=== PATIENT | male | born 1950 | race Caucasian/White ===

== ENCOUNTER → 2017-03-31 | Outpatient (CLI) | payer BC | LOC: BMCIMAGING 16:11 | PROVIDERS: ATTEND Family Medicine | DX: M25.521 Pain in right elbow (principal); M79.89 Other specified soft tissue disorders ==

== ENCOUNTER 2017-12-11 09:28 | Emergency (ER) | payer BC ==
[2017-12-11 09:33] VITALS: BP 152/97; PULSE 58; RESP 20; TEMP 98.2; O2SAT 99
--- NOTE | 2017-12-11 09:39 | EDPHY ---
H & P Stated Complaint: left eye flashing starting last night Time Seen by Provider: 12/11/17 09:38 HPI/ROS: CHIEF COMPLAINT: [place] left eye HISTORY OF PRESENT ILLNESS: The patient presents to the ED with a 1 day history of flashers his left eye. Patient denies any history of fall trauma. He denies any visual field cut. He denies any history of high pain. The patient has no prior history of ocular disease. The patient does have a prior history of concussion. The patient does have some degree of lag opthalmos following his concussion. The patient is not anticoagulated. The patient denies any additional acute complaints. REVIEW OF SYSTEMS: A comprehensive 10 point review of systems is otherwise negative aside from elements mentioned in the history of present illness. Source: Patient Exam Limitations: No limitations - Personal History Current Tetanus/Diphtheria Vaccine: Yes Current Tetanus Diphtheria and Acellular Pertussis (TDAP): Yes Tetanus Vaccine Date: 2013 - Medical/Surgical History Hx Asthma: No Hx Chronic Respiratory Disease: No Hx Diabetes: No Hx Cardiac Disease: No Hx Renal Disease: No Hx Cirrhosis: No Hx Alcoholism: No Hx HIV/AIDS: No Hx Splenectomy or Spleen Trauma: No Other PMH: 3 lasik surgeries to left eye, appendectomy, clean angioplasty,HTN, HIGH CHOLESTEROL - Social History Smoking Status: Former smoker - Physical Exam Exam: Visual Acuity: noted from Nurse's notes., no visual field deficits noted on exam Pupils: equal round and reactive to light EOMI Skin: no proptosis, no periorbital erythema or swelling, no vesicles Conjunctivae: not injected, no discharge Anterior chamber: normal, no hyphema or hypopyon Constitutional: Initial Vital Signs Temperature (C) 36.8 C 12/11/17 09:30 Heart Rate 58 L 12/11/17 09:30 Respiratory Rate 20 12/11/17 09:30 Blood Pressure 152/97 H 12/11/17 09:30 O2 Sat (%) 99 12/11/17 09:30 O2 Delivery Mode Room Air Allergies/Adverse Reactions: chloramphenicol Allergy (Verified 12/11/17 09:30) Home Medications: Medication Instructions Recorded Aspirin [Aspirin 81mg (OTC)] 81 mg PO HS 01/06/14 Simvastatin [Zocor] 20 mg PO HS 01/06/14 Lisinopril 10 mg PO HS 06/06/15 Melatonin [Melatonin 3 MG (OTC)] 3 mg PO HS 03/09/15 Medical Decision Making ED Course/Re-evaluation: The patient presents to the ED with a new flashing lights sensation is left eye. He is neurologically intact. He has no clinical evidence of a door ablation. He has no visual field cuts. The patient has no complaints of pain. Examination of the eye demonstrates no obvious deficits. The patient has been instructed that he needs to follow up for a detailed dilated eye examination with our on-call audio visual production specialist Dr. Darrin Reddy on Wednesday. He has been advised to return to the emergency department for any vision loss, severe headache, neurologic symptoms, severe eye pain or other concerns. Departure - Departure Disposition: Home, Routine, Self-Care Clinical Impression: Vision changes Condition: Good Instructions: Visual Floaters (ED), Blurred Vision (ED) Additional Instructions: 1. Please schedule a follow-up appointment on Wednesday with audio visual production specialist you have been referred to for further evaluation of your visual complaints. 2. Return to the ED for severe headache, eye pain, vision loss, numbness or weakness. Referrals: Darrin Reddy MD [Medical Doctor] - As per Instructions
[2017-12-11] MEDS ORDERED: FLUORESCEIN SODIUM 1 MG STRIP OP ONE (09:41)
[2017-12-11] MEDS ORDERED: PROPARACAINE 0.5% 15 ML OPHT DROP ONE (09:41)
== END 2017-12-11 10:09 | disposition home or self-care (01) ==
DX: H53.8 Other visual disturbances (principal); I10 Essential (primary) hypertension; Z79.82 Long term (current) use of aspirin; Z87.891 Personal history of nicotine dependence

== ENCOUNTER 2018-01-10 13:18 | Inpatient (IN) | payer BC, OTHER ==
--- NOTE | 2018-01-10 14:06 | EDPHY ---
H & P Stated Complaint: sent from MRI-hematoma in brain Time Seen by Provider: 01/10/18 13:27 HPI/ROS: CHIEF COMPLAINT: Subdural hematoma, neuro symptoms HISTORY OF PRESENT ILLNESS: The patient is a 67 y/o left hand dominant male with a history of hypertension arriving from the imaging department with a subacute left-sided subdural hematoma seen on brain MRI today. He says, "in September on the I had a fall I went head first down some stairs on a ship" while headed to [facility].At that time he was diagnosed with a concussion. In November he had an episode of numbness extending from "the top of my gluteus muscle up to my right scapula" that felt "like I'd had a shot of novocaine." This resolved and then recurred a few days later, again with spontaneous resolution. He later noticed intermittent numbness in the thumb, index, and middle finger of his right hand. Occasionally this can be associated with numbness in his lips on the right side. These symptoms last about 4-5 minutes at a time and he has been unable to identify an obvious provoking factor as they can present at rest, exertion, and in different positions. Last week, he became concerned when it "felt like my tongue wasn't forming the right words." His did not notice any change in his speech and they both deny noticing any facial asymmetry. Since the head injury in September, his daughter noticed he has not been closing his left eye incompletely, particularly while sleeping, and he's had increased watering of this eye. 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 He denies any difficulty walking, headache, or extremity weakness. He saw his PCP today for these symptoms and was referred for MRI, Subdural hematoma seen on MRI, prompting to the ED for neurosurgical evaluation. He takes a daily aspirin, no other anticoagulants. No history of cardiac or respiratory disease. REVIEW OF SYSTEMS: A 10 point review of systems was performed and is negative with the exception of the elements mentioned in the history of present illness. Past medical history: Hypertension, hypercholesterolemia, acid reflux, BPH, chronic bilateral foot numbness Past surgical history: Appendectomy, GreenLight Laser for prostate, shoulder surgery Family history: Noncontributory Social history: Exercises 5-6 days per week. , at bedside. Former smoker 30 years ago. No alcohol. Author. PCP: Dr. Bailey Prior medical records reviewed including MRI study from today and prior ED note from December 2017. Adult Physical: General Appearance: Alert, no acute distress. BP 146/102 Eyes: Pupils equal and round, no conjunctival injection, no discharge. ENT, Mouth: Mucous membranes are moist, no oropharyngeal erythema or edema. Neck: No lymphadenopathy, supple. Respiratory: Lungs are clear to auscultation; no wheezes, rales, or rhonchi. Cardiovascular: Regular rate and rhythm; no murmur, rub, or gallop. Gastrointestinal: Abdomen is soft and non tender, no masses or organomega. Skin: Warm and dry, no rashes, normal color. Back: Nontender to palpation over the thoracolumbar spine. Extremities: No lower extremity edema, no calf tenderness or swelling. Neurological: Alert and oriented. Moving all four extremities easily and equally. Cranial nerves II through XII are examined and are intact (visual acuity not tested) apart from incomplete closure of left eyelid, loss of forehead muscle tone on left, and flattening of right nasolabial fold. Strength is 4+/5 of right upper extremity and 5/5 with testing of all other major motor groups. Sensation is intact to light touch over all 4 extremities. Deep tendon reflexes are 1+ in the biceps and knees bilaterally. No ankle clonus. Gait normal. [id number] is performed accurately. Psychiatric: Normal affect. - Personal History Current Tetanus/Diphtheria Vaccine: Yes Current Tetanus Diphtheria and Acellular Pertussis (TDAP): Yes Tetanus Vaccine Date: 2013 - Medical/Surgical History Hx Asthma: No Hx Chronic Respiratory Disease: No Hx Diabetes: No Hx Cardiac Disease: Yes Hx Renal Disease: No Hx Cirrhosis: No Hx Alcoholism: No Hx HIV/AIDS: No Hx Splenectomy or Spleen Trauma: No Other PMH: 3 lasik surgeries to left eye, appendectomy, clean angioplasty,HTN, HIGH CHOLESTEROL - Social History Smoking Status: Former smoker Constitutional: Initial Vital Signs Temperature (C) 36.7 C 01/10/18 13:21 Heart Rate 68 01/10/18 13:21 Respiratory Rate 18 01/10/18 13:21 Blood Pressure 146/102 H 01/10/18 13:21 O2 Sat (%) 96 01/10/18 13:21 O2 Delivery Mode Room Air Allergies/Adverse Reactions: chloramphenicol Allergy (Verified 01/10/18 14:46) Other-Enter Comments Home Medications: Medication Instructions Recorded Aspirin [Aspirin 81mg (OTC)] 81 mg PO HS 01/06/14 Simvastatin [Zocor] 20 mg PO HS 01/06/14 Cholecalciferol Vit D3 [Vitamin D3 2,000 units PO DAILY 01/10/18 2000 units tab (OTC)] Glucosamine Sulfate [Glucosamine 1,500 mg PO DAILY 01/10/18 Sulfate 500 MG (*)] Herbals/Supplements -Info Only 1 ea PO DAILY 01/10/18 Lisinopril [Zestril 10 mg (*)] 10 mg PO HS 01/10/18 Mineral Oil/Petrolatum,White 1 susana OP HS 01/10/18 [Systane Nighttime Eye Oint] [place]-3 Fatty Acids [Fish Oil 1000 2,000 mg PO DAILY 01/10/18 mg (*)] Omeprazole 20 mg PO HS 01/10/18 Propylene Glycol/Peg 400 [Systane 1 drop OP DAILY PRN 01/10/18 Gel Eye Drops] Medical Decision Making ED Course/Re-evaluation: This is a 67 y/o male who presents with a known subacute left-sided subdural hematoma seen on brain MRI today in the setting of intermittent neuro symptoms including intermittent right-sided paresthesias, incomplete left eyelid closure , and perceived difficulty forming words. He had a known head injury in September that may be related to his current symptoms. Plan for neurosurgery consult. 1358: Consulted with nurse for Dr. Last, neurosurgeon. Neurosurgery will evaluate in the ED. 1413: Dr. Sofia, neurosurgery, is assessing patient in the ED. 1436: Neurosurgery will admit patient. 1gm IV Keppra ordered. Plan for repeat scan in the morning. Intermittent sensory changes might be seizure activity. 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 SDH is subacute, based on MRI findings. 1514: Consulted with Dr. Flores, neurology, at the request of neurosurgery. He will consult during admission. Patient is alert and fully oriented. No deterioration while in ED. He is noted to be hypertensive in ED. - Data Points Medications Given: Atorvastatin Calcium (Lipitor) 10 mg PO HS [facility] Stop: 07/09/18 20:59 Last Admin: 01/10/18 20:45 Dose: 10 mg Sodium Chloride (Ns) 1,000 mls @ 75 mls/hr IV CONT [facility] Stop: 07/09/18 14:44 Last Admin: 01/11/18 05:34 Dose: 1,000 mls Lisinopril (Zestril) 10 mg PO HS [facility] Stop: 07/09/18 20:59 Last Admin: 01/10/18 20:50 Dose: 10 mg Miscellaneous Medication (Mineral Oil/Petrolatum,White [Systane Nighttime Eye Oint]) 1 susana OP HS [facility] Stop: 07/09/18 20:59 Last Admin: 01/10/18 21:39 Dose: Not Given Pantoprazole Sodium (Protonix) 40 mg PO HS K[facility]I Stop: 07/09/18 20:59 Last Admin: 01/10/18 20:46 Dose: 40 mg Discontinued Medications Levetiracetam (Keppra (Premix)) 100 mls @ 400 mls/hr IV EDNOW ONE Stop: 01/10/18 14:49 Last Admin: 01/10/18 14:52 Dose: 100 mls Desmopressin Acetate 23 mcg/ (Sodium Chloride) 55.75 mls @ 111.5 mls/hr IV ONCE ONE Stop: 01/10/18 15:29 Last Admin: 01/10/18 15:44 Dose: 55.75 mls Departure - Departure Disposition: [facility] Clinical Impression: Subdural hematoma Condition: Fair Report Scribed for: Renetta Watts Report Scribed by: Sugar Milligan Date of Report: 01/10/18 Time of Report: 14:21 Physician Review and Approval Statement: 01/11/18 06:41 This chart was partially entered by a medical records library professor. I personally performed the HPI, PE, and MDI. I have reviewed the chart and agree with the contents.
[2018-01-10] MEDS ORDERED: levETIRAcetam 1000MG/NACL 100 ML IV ONE (14:35)
[2018-01-10] MEDS ORDERED: ACETAMINOPHEN 325 MG TAB PO PRN (14:41)
[2018-01-10] MEDS ORDERED: NS 1,000 ML IV SCH (14:45)
[2018-01-10] MEDS ORDERED: ONDANSETRON 4 MG/2 ML VIAL IVP PRN (14:46)
[2018-01-10] MEDS ORDERED: HYDROCODONE/APAP 5/325 TAB PO PRN (14:46)
[2018-01-10] MEDS ORDERED: NS IV ONE (15:00)
[2018-01-10] MEDS ORDERED: DESMOPRESSIN ACETATE IV ONE (15:00)
--- NOTE | 2018-01-10 15:32 | GHP ---
[f rep st] HISTORY AND PHYSICAL DATE OF ADMISSION: 01/10/2018 Emergency room history and physical. CHIEF COMPLAINT: Subdural hematoma. HISTORY OF PRESENT ILLNESS: Patient is a 67-year-old gentleman, who presented to the emergency department with difficulty speaking last week as well as some sporadic numbness throughout his body. Patient states he was on a cruise to [facility] on September 21, 2017, when he fell and hit the right side of his head at that time. The cruise ship doctor had diagnosed him with a concussion at the time and he felt he was progressing as he should. He fell again in November but does not feel that he hit his head and landed on his back. Patient denies any LOC with these falls. Patient has been experiencing some mild headache since September, as well as dizziness. In the last 3 weeks, he began to experience numbness along the right flank that lasted approximately 5 minutes and then resolved. This episode occurred approximately 3 times. Patient also had numbness in his right 1st, 2nd, 3rd digits and to the right side of his lip as well as his tongue. Patient denies any balance difficulties. REVIEW OF SYSTEMS: A 10-point review of systems was performed and negative aside from what was mentioned in the HPI. PAST MEDICAL HISTORY: Significant for: 1. Hypertension. 2. Hypercholesterolemia. 3. Acid reflux. 4. BPH. 5. Chronic bilateral foot neuropathy. SURGICAL HISTORY: 1. BPH surgery, which included GreenLight laser treatment. 2. Shoulder surgery. 3. Appendectomy. CURRENT MEDICATIONS: 1. Aspirin 81 mg p.o. at bedtime. 2. Simvastatin 20 mg p.o. at bedtime. 3. Lisinopril 10 mg p.o. at bedtime. 4. Melatonin 3 mg p.o. at bedtime. 5. Omeprazole daily. ALLERGIES: Chloramphenicol. SOCIAL HISTORY: Patient denies any consumption of alcoholic beverages. Patient does not smoke cigarettes and does not have a history of it. Patient denies any use of illicit drugs. Patient did try 1 dose of sublingual marijuana 2 weeks ago to see if it would help with sleeping at night, which he did not appreciate the side effects of. FAMILY HISTORY: Maternal grandmother of a stroke in her 70s. No other significant family history to the current situation. DIAGNOSTIC IMAGING: CT of the brain performed without contrast demonstrated a left-sided, subacute subdural hematoma. PHYSICAL EXAM: VITAL SIGNS: Blood pressure 146/102, heart rate 68, respiratory rate 18, oxygen saturation 96% on room air, temperature 36.7 degrees Celsius, respiratory rate 18. HEENT: Head normocephalic, atraumatic. Pupils are equal, round, and reactive to light. EOMI is intact. Patient does have some visual fasciculations occurring just below both eyes, which is worse on the left. Nose is patent. Ears are patent. RESPIRATORY: Deferred. CARDIAC: Deferred. ABDOMEN: Deferred. GENITOURINARY: Deferred. RECTAL: Deferred. NEUROLOGIC: Patient is awake, alert, oriented to name, place, location, date, time, and situation. His memory is intact to immediate past and current events. Speech, no aphasia or dysphonia. Cranial nerves 2-12 are grossly intact, aside from a mild facial droop. 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 Sensation is grossly intact to light touch throughout all dermatomal distributions in the bilateral lower extremities. Reflexes biceps, triceps, brachioradialis, knee jerk, and ankle jerk are 2+/4. Toes are downgoing bilaterally. Azul sign is negative. Babinski is negative, and there is no evidence of clonus. Patient has a negative pronator drift. ASSESSMENT AND PLAN: Patient is a 67-year-old gentleman, who takes an 81 mg aspirin daily. He suffered a fall on a cruise ship to [facility] in September and was diagnosed with a concussion. Patient fell again in November but does not feel that he hit his head. He has been having progressive, sporadic numbness throughout his body, including his right flank, right side of his lip, tongue, and 1st, 2nd and 3rd fingers in his right hand. Last week, he experienced some slurred speech and had difficulty with some expressive aphasia. He presented to the emergency department today for evaluation, underwent a CT of the brain without contrast, which demonstrated a left-sided, subacute subdural hematoma. Patient is neurologically intact with a Sreekanth Coma Scale of 15. We discussed the possibility of needing surgical intervention. We will stop his aspirin and administer one dose of ddavp and follow the patient's neurologic exam. It is our hope that we can avoid surgery. Patient will be admitted to us in the step-down unit. We will do every 2-hour neurologic checks. He is getting 1 g of Keppra in the emergency department and we will continue that at 750 mg twice daily. We will get a repeat CT of the brain with Stealth protocol in the morning for evaluation. If his symptoms progress he will need a left craniotomy for subdural evacuation. Neurology will see this patient as well due to his sporadic symptoms, as well as some facial fasciculations. It is unclear if he has been experiencing small seizures at times. Patient was seen and examined by myself and Dr. Sofia in the emergency department today, January 10, 2018, at 1415. Please call Neurosurgery with any questions or concerns. /[id number]/MODL MTDD
--- NOTE | 2018-01-10 15:32 | NEUSURGPN ---
Assessment/Plan: Assessment: 67 yr old with subacute subdural hematoma Plan: -Please see dictated H/P when available for details -Admit SDU -Q2hour neuro checks -PT/OT/ST to eval and treat -Keppra 750mg BID -Hold ASA -ddavp given in ER -Neurology consulted for facial fasciculations, sporadic numbness, eval for seizures -Repeat CT brain in am with Stealth protocol, no fiducials needed -Patient was seen and examined by myself and Dr Sofia in the ER today at 1415 -Please call neurosurgery with any questions/concerns Subjective: Slurred speech last week Objective: AxO x3 PERRLA EOMI CN 2-12 grossly intact, mild facial droop Bilateral fasciculations noted beneath OU 5/5 BUE, BLE Neuro Check Frequency: [id number] Urinary Catheter in Place: No - Physician Discussed Patient with Dr.: Sofia Patient Seen by Dr.: Sofia Neurosurgery Physical Exam - Vitals, I&O, Labs Vital Signs Temp Pulse Resp BP Pulse Ox 37.2 C 59 L 16 132/76 H 92 01/10/18 15:23 01/10/18 15:23 01/10/18 15:23 01/10/18 15:23 01/10/18 15:23 ICD10 Worksheet Patient Problems: Problems Problem Status Onset Subdural hematoma Acute Chest pain Acute
[2018-01-10] MEDS ORDERED: Propylene Glycol/Peg 400 [Systane Gel Eye Drops] 1 DROP OP PRN (15:33)
--- NOTE | 2018-01-10 17:12 | PDMN ---
Medical Necessity Medical necessity: M78- traumatic brain injury non-surgical 2 days; new or presumed new intracranial pathology on imaging: CT shows L sided, subacute subdural hematoma pt has been having falls, difficulty speaking, sporadic numbness, mild facial droop. - poss surgical intervention, q 2 hour neuro checks, repeat head CT, PT,OT,ST evals, further monitoring, tx needed.
--- NOTE | 2018-01-10 18:12 | GCON ---
[f rep st] CONSULTATION NEUROLOGIC CONSULTATION REFERRING PHYSICIAN: Martina Covington NP HISTORY: The patient is a 67-year-old gentleman whom I am asked to see in neurologic consultation re garding symptoms of tingling on the right side of his body. The patient had a fall when he was on a ship in September and struck the left side of his head when he was thrown forward down a flight of sta irs. He does not think he actually lost consciousness, but he is amnestic for a lot of the immediate events around that period. He stayed on the cruise and rested and did not have any brain imaging. He said soon after this, he was aware that he was having trouble with his left eye, specifically had trouble closing his eye. He eventually had ophthalmologic evaluation about 6 weeks ago and it was th ought that he might have had Richter's palsy or some injury to the 7th cranial nerve. About 3 weeks ago , he started experiencing phenomena where he would have about 5 minutes of sudden numbness on his rig ht flank. Fairly soon after that, he had several episodes that would occur in which he would feel ti ngling in the right periorbital region and in the thumb, index and middle fingers for, again, about 5 minutes. He then had 1 episode where he had some trouble with his articulation. He said it was carolina d to control his tongue. He said he was with his who did not really notice it, but he could tel l something was not right. He had an episode Wednesday with the facial tingling and right hand tingling . He came to the emergency room today for evaluation and had brain MRI showing a small left subacute subdural hematoma, felt to be most likely related to his prior trauma. I have been asked to consult regarding possible seizure activity and the facial weakness, as well. PAST MEDICAL HISTORY: Notable for a negative cardiac workup several years ago for some chest pain. He has a history of hypertension. MEDICATIONS: He normally takes a baby aspirin daily and takes Zocor for hyperlipidemia. FAMILY HISTORY: Noncontributory. ALLERGIES: To chloramphenicol. PHYSICAL EXAM: VITAL SIGNS: Blood pressure 122/72, pulse of 65, respirations 19, temperature 36.5. GENERAL: He is well developed, in no acute distress. NECK: Supple with no bruits or masses. CARD IAC: Regular rate and rhythm with no murmur. HEENT: He has some excessive tearing in the left eye. Pupils 2 mm and reactive. Extraocular movements are intact. Normal facial sensation, but he has i ncomplete closure of the left eye. There is not much distinct weakness in the left forehead or the l eft face. He actually has more of a right facial droop. His speech is perhaps mildly dysarthric, bu t no sense from him of significant changes from his baseline. He is fully oriented. MOTOR: Normal muscle bulk and tone with 5/5 strength. SENSATION: Preserved for temperature and light touch. REFL EXES: 1+. I reviewed his MRI and agree with the radiologic interpretation showing the small subdural hematoma w ithout significant mass effect. IMPRESSION: Total unit time of 70 minutes. The patient has subacute left subdural hematoma, most li sachin precipitated by his fall on the ship back in September and now has had some symptoms suspicious f or simple partial seizure phenomena affecting the right side with sensory changes episodically. He h ad 1 episode where there was some dysarthria as well. 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 He has some fasci culations around the left eye as well, which would be consistent with the changes of peripheral nerve damage. I agree with discontinuation of the aspirin to allow the subdural hematoma to more quickly resolve. He should stay on the Keppra 750 mg twice daily for seizure prophylaxis. It is not necessary to lennie t these seizure phenomena more aggressively for now because of the probability of gradual resolution as the subdural resolves. Neurosurgery is going to make a decision regarding observation versus any intervention for drainage. I will be happy to follow him along during hospitalization and then follo w up as an outpatient and manage questions related to the seizure. He is already using eyedrops for lubrication of the eye and patch of the eye in the evening to protect it, which is critical. He is s upposed to have followup with Ophthalmology in the near future. /[id number]/MODL
[2018-01-10] MEDS ORDERED: LISINOPRIL 10 MG TAB PO SCH (21:00)
[2018-01-10] MEDS ORDERED: ATORVASTATIN CALCIUM 10 MG TAB PO SCH (21:00)
[2018-01-10] MEDS ORDERED: MINERAL OIL OP SCH (21:00)
[2018-01-10] MEDS ORDERED: PANTOPRAZOLE SODIUM 40 MG TAB PO SCH (21:00)
[2018-01-10] MEDS ORDERED: PETROLATUM WHITE OP SCH (21:00)
[2018-01-11 06:22] LABS: PLATELET COUNT 143 10^3/uL (150-400)
[2018-01-11 07:59] VITALS: BP 117/84
--- NOTE | 2018-01-11 09:16 | NEUSURGPN ---
Assessment/Plan: Assessment: 67 yr old with subacute subdural hematoma Plan: -Discharge home -Repeat CT this am stable -Continue to hold ASA -PT/OT/ST to eval and treat -Appreciate Neurology consult and will continue Keppra at discharge -Discussed patient with Dr Sofia -Please call neurosurgery with any questions/concerns Subjective: No new events, patient walking around room Objective: PERRLA EOMI CN 2-12 grossly intact aside from mild facial droop and left brow raise diminished 5/5 BUE, BLE Neuro Check Frequency: per routine Urinary Catheter in Place: No - Physician Discussed Patient with Dr.: Sofia Neurosurgery Physical Exam - Vitals, I&O, Labs I and O 01/10/18 01/11/18 01/12/18 05:59 05:59 05:59 Intake Total 1355 Balance 1355 Weight 79.379 kg Intake: Oral (ml) 400 IV Infused (ml) 955 Ns 1,000 ml @ 75 mls/hr 955 IV CONT KORI Rx#: [id number] Other: Intake Quantity Yes Sufficient Number of Voids Toilet 2 Vital Signs Temp Pulse Resp BP Pulse Ox 36.9 C 63 18 117/84 H 95 01/11/18 07:56 01/11/18 07:56 01/11/18 07:56 01/11/18 07:56 01/11/18 07:56 Laboratory Results 01/11/18 06:16 01/11/18 06:16 ICD10 Worksheet Patient Problems: Problems Problem Status Onset Subdural hematoma Acute Chest pain Acute
[2018-01-11] MEDS ORDERED: levETIRAcetam 250 MG TAB PO SCH (09:30)
--- NOTE | 2018-01-13 19:09 | GDS ---
[f rep st] DISCHARGE SUMMARY PRIMARY DIAGNOSIS: Left-sided subacute subdural hematoma. OPERATIONS AND PROCEDURES: None. HOSPITAL COURSE: The patient was admitted to the ICU for observation from the emergency room. Every 1-hour neuro checks were performed overnight, which remained stable. The patient underwent a repeat CT of the brain the following morning on January 11, 2018, which demonstrated a mildly improved left-s ided subdural hematoma. The patient remained neurologically stable and was discharged home. CONSULTATIONS: Neurology, Dr. Flores. COMPLICATIONS: None. DISCHARGE CONDITION: Stable. DISCHARGE MEDICATIONS: The patient is to continue Keppra 750 mg twice daily. DISCHARGE INSTRUCTIONS: The patient is to avoid any strenuous activities. He is scheduled to follow up with Dr. Sofia's team at the [facility] office in the next 2-3 weeks with a re peat head CT without contrast. The patient is to follow up with Dr. Flores per his schedule. The patient is instructed to call t he office with any questions or concerns, and red flag symptoms were discussed. /[id number]/MODL
== END 2018-01-11 10:20 | disposition home or self-care (01) | DRG 87 ==
LOC: F2N 15:25
PROVIDERS: ADMIT Neurological Surgery; ATTEND Neurological Surgery
DX: S06.5X0A Traumatic subdural hemorrhage without loss of consciousness, initial encounter (principal); W10.8XXA Fall (on) (from) other stairs and steps, initial encounter; Y92.814 Boat as the place of occurrence of the external cause; Z79.82 Long term (current) use of aspirin; I10 Essential (primary) hypertension; K21.9 Gastro-esophageal reflux disease without esophagitis; E78.00 Pure hypercholesterolemia, unspecified; N40.0 Benign prostatic hyperplasia without lower urinary tract symptoms; G62.9 Polyneuropathy, unspecified
CPT/HCPCS: J1953; J2597

== ENCOUNTER → 2018-01-10 | Outpatient (CLI) | payer BC | LOC: FIMAGING 10:57 | PROVIDERS: ATTEND Nurse Practitioner Adult Health | DX: S06.5X0A Traumatic subdural hemorrhage without loss of consciousness, initial encounter (principal) ==

== ENCOUNTER 2018-01-24 18:44 | Emergency (ER) | payer BC ==
--- NOTE | 2018-01-24 19:09 | EDPHY ---
H & P Stated Complaint: 3 hours of vertigo and "not feeling right in the head' Time Seen by Provider: 01/24/18 19:08 HPI/ROS: CHIEF COMPLAINT: Recurrent vertigo, history of chronic subdural hematoma HISTORY OF PRESENT ILLNESS: The patient presents to the ED after he developed an episode of recurrent vertigo this evening. The patient experienced a traumatic brain injury in September. He ultimately was diagnosed with a chronic subdural hematoma in January of this year. He was seen by Neurosurgery and this subdural was felt to be nonsurgical. He was discharged home and has been working with a physical therapist as he did experience some symptoms of vertigo , imbalance and some speech impediment. The patient denies any history of a new fall. The patient reports that an episode of severe vertigo he experienced earlier today was positional in nature. It was not associated with any new neurologic symptoms. It has significantly improved. REVIEW OF SYSTEMS: A comprehensive 10 point review of systems is otherwise negative aside from elements mentioned in the history of present illness. Source: Patient Exam Limitations: No limitations - Personal History Current Tetanus Diphtheria and Acellular Pertussis (TDAP): Yes Tetanus Vaccine Date: 2013 - Medical/Surgical History Hx Asthma: No Hx Chronic Respiratory Disease: No Hx Diabetes: No Hx Cardiac Disease: Yes Hx Renal Disease: No Hx Cirrhosis: No Hx Alcoholism: No Hx HIV/AIDS: No Hx Splenectomy or Spleen Trauma: No Other PMH: 3 lasik surgeries to left eye, appendectomy, clean angioplasty,HTN, HIGH CHOLESTEROL. Subdural hematoma 01/10/18. - Social History Smoking Status: Former smoker - Physical Exam Exam: General Appearance: Alert, no distress Eyes: Pupils equal and round no pallor or injection ENT, Mouth: Mucous membranes moist Respiratory: There are no retractions, lungs are clear to auscultation Cardiovascular: Regular rate and rhythm Gastrointestinal: Abdomen is soft and nontender, no masses, bowel sounds normal Neurological: Alert and oriented x4, 5/5 strength all 4 extremities, horizontal nystagmus noted with leftward gaze Skin: Warm and dry, no rashes Musculoskeletal: Neck is supple nontender Extremities: symmetrical, full range of motion Psychiatric: Patient is oriented X 3, there is no agitation Constitutional: Initial Vital Signs Temperature (C) 36.4 C 01/24/18 18:58 Heart Rate 62 01/24/18 18:58 Respiratory Rate 16 01/24/18 18:58 Blood Pressure 160/105 H 01/24/18 18:58 O2 Sat (%) 98 01/24/18 18:58 O2 Delivery Mode Room Air Allergies/Adverse Reactions: chloramphenicol Allergy (Verified 01/10/18 14:46) Other-Enter Comments Home Medications: Medication Instructions Recorded Simvastatin [Zocor] 20 mg PO HS 01/06/14 Glucosamine Sulfate [Glucosamine 1,500 mg PO DAILY 01/10/18 Sulfate 500 MG (*)] Lisinopril [Zestril 10 mg (*)] 10 mg PO HS 01/10/18 Mineral Oil/Petrolatum,White 1 susana OP HS 01/10/18 [Systane Nighttime Eye Oint] Omeprazole 20 mg PO HS 01/10/18 Propylene Glycol/Peg 400 [Systane 1 drop OP DAILY PRN 01/10/18 Gel Eye Drops] Acetaminophen [Tylenol 325mg (*)] 650 mg PO Q4HRS PRN tab 01/11/18 Mineral Oil/Petrolatum,White 1 susana OP HS 01/11/18 [Systane Nighttime Eye Oint] levETIRAcetam [Keppra 250 mg (*)] 750 mg PO BID #60 tab 01/11/18 Medical Decision Making - Diagnostics Imaging Results: Imaging Impressions Head CT 01/24/18 19:09 Impression: Subacute left frontoparietal subdural hematoma, similar to the previous study, without midline shift or herniation. Findings and recommendations discussed with Emergency Department physician, Gino Carey M.D., at 1930 hours, on January 24, 2018. Final report concurs with initial preliminary interpretation. E:amm ED Course/Re-evaluation: Given the patient's history of subdural hematoma a repeat CT scan was performed which demonstrates no progression of his hematoma or significant mass effect. The patient's physical examination is consistent with benign positional vertigo. He was given meclizine in the emergency department. The patient has no acute neurologic complaints aside from vertigo. He has no complaints of acute neck pain. He has no bruit noted on exam. The patient is feeling better after treatment in the emergency department. At this point time I do feel it is reasonable to discharge him home with a prescription for meclizine and Zofran. The patient is comfortable returning to the emergency department for any severe headache, markedly worsening neurologic symptoms or other concerns. Differential Diagnosis: Differential diagnosis considered includes intracranial hemorrhage, labyrinthitis, benign positional vertigo, dehydration, metabolic abnormality - Data Points Medications Given: Discontinued Medications Meclizine HCl (Meclizine Hcl) 25 mg PO EDNOW ONE Stop: 01/24/18 19:35 Last Admin: 01/24/18 19:50 Dose: 25 mg Departure - Departure Disposition: Home, Routine, Self-Care Clinical Impression: Benign positional vertigo, Chronic subdural hematoma Condition: Good Instructions: Vertigo (ED) Additional Instructions: 1. Meclizine as needed for vertigo. 2. Zofran as needed for nausea. 3. Return to the ED for markedly worsening symptoms, severe headache, symptoms of new numbness or weakness. 4. Follow up with your primary care provider as scheduled. Referrals: Martina Bailey MD [Primary Care Provider] - As per Instructions
[2018-01-24] MEDS ORDERED: MECLIZINE HCL 25 MG TAB PO ONE (19:34)
[2018-01-24 20:42] VITALS: BP 113/81
== END 2018-01-24 20:53 | disposition home or self-care (01) ==
DX: H81.10 Benign paroxysmal vertigo, unspecified ear (principal); I62.03 Nontraumatic chronic subdural hemorrhage; I10 Essential (primary) hypertension; Z87.891 Personal history of nicotine dependence

== ENCOUNTER → 2018-02-01 | Outpatient (CLI) | payer BC | LOC: FIMAGING 12:27 | PROVIDERS: ATTEND Internal Medicine | DX: I62.00 Nontraumatic subdural hemorrhage, unspecified (principal) ==

== ENCOUNTER → 2018-03-18 | Outpatient (CLI) | payer BC | LOC: FIMAGING 08:48 | PROVIDERS: ATTEND Neurological Surgery | DX: S06.5X0D Traumatic subdural hemorrhage without loss of consciousness, subsequent encounter (principal) ==

== ENCOUNTER → 2018-06-30 | Outpatient (CLI) | payer BC | LOC: BMCIMAGING 08:42 | PROVIDERS: ATTEND Emergency Medicine | DX: M25.561 Pain in right knee (principal) ==

== ENCOUNTER → 2018-08-04 | Outpatient (CLI) | payer BC ==
[~2018-08-04] MED LIST: IOPAMIDOL (ISOVUE 370) 100 ML BTL IV ONE
== END ==
LOC: CIMAGING 10:47
PROVIDERS: ATTEND Psychiatry & Neurology Neurology
DX: R42 Dizziness and giddiness (principal); E04.1 Nontoxic single thyroid nodule; G60.9 Hereditary and idiopathic neuropathy, unspecified; Z86.79 Personal history of other diseases of the circulatory system
CPT/HCPCS: 70450-PO; 70496-PO; 70498-PO; Q9967

== ENCOUNTER → 2018-10-18 | Outpatient (CLI) | payer BC | LOC: BMCIMAGING 12:09 | PROVIDERS: ATTEND Family Medicine | DX: S69.92XA Unspecified injury of left wrist, hand and finger(s), initial encounter (principal) ==

== ENCOUNTER → 2018-10-18 | Outpatient (CLI) | payer BC | LOC: FIMAGING 14:52 | PROVIDERS: ATTEND Family Medicine | DX: S09.90XA Unspecified injury of head, initial encounter (principal) ==